=== PATIENT | male | born 1995 | race Caucasian/White ===

== ENCOUNTER 2025-03-17 18:23 | Emergency (ER) | payer SELFPAY ==
[2025-03-17] MEDS ORDERED: Sodium Chloride 0.9% 2.5 ML Syringe FLUSH PRN (18:28)
[2025-03-17] MEDS ORDERED: Sodium Chloride 0.9% 10 ML Syringe FLUSH PRN (18:28)
[2025-03-17 18:51] LABS: BASOPHILS ABSOLUTE AUTO 0.07 K/uL (0.00-0.20); BASOPHILS PERCENT AUTO 0.7 % (0.0-1.0); EOSINOPHILS ABSOLUTE AUTO 0.22 K/uL (0.00-0.45); EOSINOPHILS PERCENT AUTO 2.2 % (0.0-6.0); IMMATURE GRAN ABSOLUTE AUTO 0.02 K/uL (0.00-0.05); IMMATURE GRAN PERCENT AUTO 0.2 % (0.0-0.4); LYMPHOCYTES ABSOLUTE AUTO 2.20 K/uL (1.00-4.80); LYMPHOCYTES PERCENT AUTO 22.4 % (24.0-44.0); MEAN PLATELET VOLUME 10.3 fL (9.4-12.4); MONOCYTES ABSOLUTE AUTO 1.18 K/uL (0.00-0.80); MONOCYTES PERCENT AUTO 12.0 % (0.0-8.0); NEUTROPHILS ABSOLUTE AUTO 6.11 K/uL (1.80-7.70); NEUTROPHILS PERCENT AUTO 62.5 % (41.0-71.0); NRBC ABSOLUTE 0.00 K/uL (0.00-0.02); NRBC PERCENT 0.0 /100WBC (0.0-0.2); PLATELET COUNT,PLT 316 K/uL (150-400); RED BLOOD CELL COUNT 5.29 M/uL (4.52-5.90); WHITE BLOOD CELL COUNT,WBC 9.80 K/uL (3.9-11.3)
[2025-03-17] MEDS: Ketorolac 30 MG/ML SDV IVPUSH ONE (18:55)
[2025-03-17] MEDS: Ondansetron 4 MG/2 ML SDV IVPUSH ONE (18:56)
[2025-03-17 19:03] LABS: INR 0.98 (0.86-1.11)
[2025-03-17 19:19] LABS: ALANINE AMINOTRANSFERASE,ALT 32.0 IU/L (14-63); ASPARTATE AMNIOTRANSFERASE,AST 18.0 IU/L (15-37); BILIRUBIN TOTAL 2.0 mg/dL (0.2-1.0); BLOOD UREA NITROGEN,BUN 7.0 mg/dL (7.0-18.0); CARBON DIOXIDE,CO2 23.4 mmol/L (21.0-32.0); CHLORIDE,CL 103.0 mmol/L (98-107); CREATININE 0.8 mg/dL (0.8-1.3); EST CRCL DRUG DOSING (CG) 141.94 mL/min; GLUCOSE RANDOM 61.0 mg/dL (74-106); POTASSIUM,K 3.6 mmol/L (3.5-5.1); PROTEIN TOTAL,TP 8.4 g/dL (6.4-8.2); SODIUM,NA 141.0 mmol/L (136-148)
[2025-03-17 19:21] LABS: A/G RATIO 1.1 (0.9-1.6); ESTIMATED GFR 124.0 mL/min (>60)
[2025-03-17 19:23] LABS: APPEARANCE,URINE CLEAR; GLUCOSE,URINE NEGATIVE (NEGATIVE); OCCULT BLOOD,URINE NEGATIVE (NEGATIVE)
== END 2025-03-17 20:15 | disposition home or self-care (01) ==
LOC: MW.ED 18:23
DX: A08.4 Viral intestinal infection, unspecified (principal); J02.9 Acute pharyngitis, unspecified; R50.9 Fever, unspecified; E10.9 Type 1 diabetes mellitus without complications; Z79.4 Long term (current) use of insulin; Z79.899 Other long term (current) drug therapy
CPT/HCPCS: 36415; 80053; 81003; 82947; 83690; 85025; 85610; 87428; 87651; 96361; 96374; 96375; 99284; J1885; J2405; J7030; J8540; 99283